=== PATIENT | female | born 1960 | race Caucasian/White ===

== ENCOUNTER 2022-03-16 15:56 | Outpatient (RCR) | payer BC | END 2022-03-24 | LOC: PT 15:56 | PROVIDERS: ATTEND Specialist | DX: S82.034D Nondisplaced transverse fracture of right patella, subsequent encounter for closed fracture with routine healing (principal) ==

== ENCOUNTER 2022-04-04 16:00 | Outpatient (RCR) | payer BC | END 2022-04-24 | LOC: PT 16:00 | PROVIDERS: ATTEND Specialist | DX: S82.034D Nondisplaced transverse fracture of right patella, subsequent encounter for closed fracture with routine healing (principal) | CPT/HCPCS: 97139 ==